=== PATIENT | female | born 1995 | race African-American/Black ===

== ENCOUNTER 2024-06-17 18:47 | Emergency (ER) | payer MEDICAID, OTHER ==
[~2024-06-17] VITALS: Ht 152.4 cm; Wt 53.0 kg
[2024-06-17 18:50] VITALS: O2SAT 100
[2024-06-17 19:39] VITALS: BP 111/70; PULSE 90; RESP 20; TEMP 36.72516; O2SAT 100
== END 2024-06-17 19:43 | disposition home or self-care (01) ==
LOC: ER 18:47
DX: F43.9 Reaction to severe stress, unspecified (principal); R06.02 Shortness of breath
CPT/HCPCS: 71045; 99283